=== PATIENT | female | born 2000 | race Caucasian/White ===

== ENCOUNTER 2024-06-17 00:17 | Observation (INO) | payer BC, SELFPAY ==
[2024-06-17] VITALS (7 sets, daily range): BP systolic 119–148; BP diastolic 75–107; PULSE 61–80; TEMP 36.6–37.3; O2SAT 95–100; BMI 26.6
--- NOTE | 2024-06-17 00:43 | ED_ITS ---
HPI - Abdominal Pain General Chief Complaint: Abdominal Pain Stated Complaint: ABDOMINAL PAIN, NAUSEA Time Seen by Provider: 06/17/24 00:40 Source: patient and other Source comment: Nurse from [facility] called report [employer] Mode of arrival: Wheelchair Limitations: no limitations History of Present Illness HPI narrative: opiate use disorder. Detoxed from Fentanyl and feeling better for a couple of days. Given suboxone yesterday and now presents with recurrent vomiting and abdominal pain. No diarrhea. no chest pain. Hydrated at detox facility and also given zofran and phenergan without improvement. States became ill several hours after taking suboxone. Patient denies use of marijuana MD elicited complaint: Reports abdominal pain Related Data Home Medications ?Medication ?Instructions ?Recorded ?Confirmed acetaminophen 500 mg tablet 500 mg PO TID PRN pain 06/17/24 06/17/24 buprenorphine 2 mg-naloxone 0.5 mg 1 film buccal DAILY 06/17/24 06/17/24 sublingual film (Suboxone) clonidine HCl 0.1 mg tablet 0.1 mg PO TID PRN hypertensive 06/17/24 06/17/24 emergency cyclobenzaprine 5 mg tablet 5 mg PO BID PRN muscle pain 06/17/24 06/17/24 dicyclomine 10 mg capsule 10 mg PO TID PRN abdominal pain 06/17/24 06/17/24 docusate sodium 100 mg capsule 100 mg PO BID PRN constipation 06/17/24 06/17/24 folic acid 1 mg tablet 1 mg PO .QD 06/17/24 06/17/24 hydroxyzine pamoate 25 mg capsule 25 mg PO Q6H PRN VALENTINA 06/17/24 06/17/24 ibuprofen 800 mg tablet (IBU) 800 mg PO TID PRN pain 06/17/24 06/17/24 levetiracetam 250 mg tablet 250 mg PO BID 06/17/24 06/17/24 (Keppra) melatonin 10 mg capsule 10 mg PO HS PRN sleep 06/17/24 06/17/24 omeprazole 20 mg capsule,delayed 20 mg PO DAILY 06/17/24 06/17/24 release ropinirole 1 mg tablet 1 mg PO TID 06/17/24 06/17/24 thiamine HCl (vitamin B1) 100 mg 100 mg PO .QD 06/17/24 06/17/24 tablet Previous Rx's ?Medication ?Instructions ?Recorded ondansetron 8 mg disintegrating 4 mg (1/2 x 8 mg) PO TID PRN 06/18/24 tablet nausea and vomiting #10 tabs Allergies Allergy/AdvReac Type Severity Reaction Status Date / Time No Known Drug Allergies Allergy Verified 06/17/24 00:25 Review of Systems ROS Status of ROS 10 or more systems reviewed and unremark able except as noted in history and below [facility] Medical History (Updated 06/17/24 @ 21:43 by Shaikh Jonathan MD) Seizure disorder ?G40.909 - Epilepsy, unspecified, not intractable, without status epilepticus (ICD-10) Opioid use disorder ?F11.90 - Opioid use, unspecified, uncomplicated (ICD-10) Social History (Updated 06/17/24 @ 06:34 by Amelie Rojas RN) Within the past year, how often did you have a drink containing alcohol: never Score interpretation: A score less than 3 is consistent with normal alcohol consumption. Smoking status: Never smoker Non-prescribed substance use details: Fentanyal Highest level of school completed/degree received: high school graduate Are you now , , , , never or living with a partner: never Little interest or pleasure in doing things: nearly every day Feeling down, depressed, or hopeless: nearly every day Feel stressed/tense/nervous/anxious/difficulty sleeping: rather much Gender Identity: female Exam Constitutional Vital Signs, click to edit/add: Last Vital Signs Temp 98.3 F 06/18/24 04:00 Pulse 66 06/18/24 04:00 Resp 16 06/18/24 04:00 BP 135/78 06/18/24 04:00 Pulse Ox 98 06/18/24 04:00 O2 Del Method Room Air 06/18/24 04:00 Common normals: no apparent distress, average body habitus, oriented x3, no limitations, healthy appearing, alert and well nourished [facility] Common normals: normocephalic and head/scalp atraumatic Respiratory Common normals: normal respiratory effort, no retractions, no use of accessory muscles and clear to auscultation bilaterally Cardio Common normals: regular rate, regular rhythm, S1 normal heart sound and S2 normal heart sound GI Common normals: Normal to inspection, nondistended, normoactive bowel sounds present and soft to palpation Other: generalized nonspecific tenderness Extremity Common normals: normal to inspection and full ROM Neuro Common normals: oriented x3, CN's II-XII intact bilaterally, moves all extremities and no focal motor deficits Psych Appearance: grossly normal Course Course Hospital Course: 23 y o female with hx of Opioid use disorder, was sent to the ED for intractable nausea and vomiting from opioid rehab facility where patient was being treated for Fentanyl use, and was undergoing detox from it. Patient reported that she was doing well until 2-3 days when she was started on Suboxone and since then she started to experience intractable nausea, vomiting and inability to tolerate PO diet. Patient reported similar reaction to Suboxone use in the past. Denies IV drug use. Patient was supposed to be discharged from Rehab facility and follow up as outpatient to continue her treatment for OUD. However, because of her symptoms, she was brought over to ED for further eval. Work up in ED was unremarkable with no evidence of sig metabolic/infectious etiology/derangement. Patient was admitted for IV hydration, supportive care for nausea/vomiting. Patient feels well today and denies any GI symptoms. She is medically stable for discharge. Follow-up with PCP in 1 to 2 weeks. She already has an appointment as an outpatient with opioid treatment center tomorrow. Vital Signs Vital signs: Vital Signs Temperature 98.8 F 06/17/24 00:21 Pulse Rate 61 06/17/24 00:21 Respiratory Rate 18 06/17/24 00:21 Blood Pressure 132/96 H 06/17/24 00:21 Pulse Oximetry 98 06/17/24 00:21 Oxygen Delivery Method Room Air 06/17/24 00:21 Temperature 98.3 F 06/18/24 04:00 Pulse Rate 66 06/18/24 04:00 Respiratory Rate 16 06/18/24 04:00 Blood Pressure 135/78 06/18/24 04:00 Pulse Oximetry 98 06/18/24 04:00 Oxygen Delivery Method Room Air 06/18/24 04:00 MDM - Abdominal Pain MDM Narrative Medical decision making narrative: substance abuse patient presents from detox center. States she had detoxed from Fentanyl and was feeling well for a couple of days. She was then started on suboxone yesterday. Several hours later she developed intractable nausea and vomiting. Treated at the center with hydration and antiemetics without response and presented to the ER. Exam unremarkable except for diffuse nonspecific abdominal tenderness without guarding. Hydrated and treated again with antiemetics. CT abdomen neg. Patient remains nausea and has again vomited despite treatment. Urine drug screen positive for suboxone. CBC, CMP WNL. UA with evidence of dehydration. Discussed with the hospitalist and patient accepted for intractable vomiting Lab Data Labs: Lab Results 06/17/24 06/17/24 06/17/24 Range/Units 00:37 01:11 01:57 WBC 7.1 (4.0-11.0) 10^3/uL RBC 4.52 (4.20-5.40) 10^6/uL Hgb 14.1 (12.0-16.0) g/dL Hct 40.1 (36.0-48.0) % MCV 88.7 (81.0-99.0) fL MCH 31.2 (26.7-34.0) pg MCHC 35.2 (29.9-35.2) g/dL RDW 11.6 (11.0-15.0) % Plt Count 358 (150-450) 10^3/uL MPV 9.1 L (9.5-13.5) fL Neut % (Auto) 85.0 H (43.0-75.0) % Lymph % (Auto) 11.5 L (20.5-60.0) % [place] % (Auto) 2.2 (1.7-12.0) % Eos % (Auto) 0.6 L (0.9-7.0) % Baso % (Auto) 0.4 (0.2-2.0) % Neut # (Auto) 6.1 (1.4-6.5) 10^3/uL Lymph # (Auto) 0.8 L (1.2-3.8) 10^3/uL [place] # (Auto) 0.2 L (0.3-0.8) 10^3/uL Eos # (Auto) 0.0 (0.0-0.7) 10^3/uL Baso # (Auto) 0.0 (0.0-0.1) 10^3/uL Abs Immat Gran (auto) 0.02 (0.00-0.03) 10^3/uL Imm/Tot Granulo (auto) 0.3 (0.0-0.5) % Sodium 141 (136-145) mmol/L Potassium 4.5 (3.5-5.1) mmol/L Chloride 106 (98-107) mmol/L Carbon Dioxide 23.4 (21.0-32.0) mmol/L Anion Gap 16.1 BUN 15.0 (7.0-18.0) mg/dL Creatinine 0.68 (0.55-1.02) mg/dL Est GFR ( Amer) >60 (>=60 mL/min/1.73m^2) Est GFR (Non-Af Amer) >60 (>=60 mL/min/1.73m^2) BUN/Creatinine Ratio 22.1 Glucose 114 H (74-106) mg/dL Lactate 1.3 (0.4-2.0) mmol/L Calcium 9.3 (8.5-10.1) mg/dL Total Bilirubin 1.1 H (0.2-1.0) mg/dL AST 31 (15-37) U/L ALT 18 (14-59) U/L Alkaline Phosphatase 165 H (46-116) U/L Total Protein 7.8 (6.4-8.2) g/dL Albumin 3.9 (3.4-5.0) g/dL Globulin 3.9 g/dL Albumin/Globulin Ratio 1.0 Lipase 43.0 (16.0-77.0) U/L Urine Color Yellow (YELLOW) Urine Clarity Sl cloudy (CLEAR) Urine pH 6.0 (5.0-9.0) Ur Specific [place] >=1.030 A (1.005-1.025) Urine Protein Trace (NEG/TRACE) mg/dL Urine Glucose (UA) Negative (NEGATIVE) mg/dL Urine Ketones 40 A (NEGATIVE) mg/dL Urine Occult Blood Moderate A (NEGATIVE) Urine Nitrite Negative (NEGATIVE) Urine Bilirubin Small A (NEGATIVE) Urine Urobilinogen 0.2 (0.2-1.0) EU/dL Ur Leukocyte Esterase Negative (NEGATIVE) Urine RBC 0-2 (0-2) #/HPF Urine WBC 2-5 A (NONE SEEN) #/HPF Ur Squamous Epith Cells Many A (NONE/RARE) #/LPF Urine Crystals None seen (None Seen) #/HPF Urine Bacteria Trace A (NONE SEEN) #/HPF Urine Casts None seen (NONE SEEN) #/LPF Urine Mucus Large A (NONE SEEN) Ur Culture Indicated? No Urine HCG, Qual Negative (NEGATIVE) Urine Opiates Screen Negative (NEGATIVE) Ur Buprenorphine Scrn Positive A (NEGATIVE) Ur Oxycodone Screen Negative (NEGATIVE) Urine Methadone Screen Negative (NEGATIVE) Ur Barbiturates Screen Negative (NEGATIVE) U Tricyclic Antidepress Positive A (NEGATIVE) Ur Phencyclidine Scrn Negative (NEGATIVE) Ur Amphetamines Screen Negative (NEGATIVE) U Methamphetamines Scrn Negative (NEGATIVE) U Benzodiazepines Scrn Negative (NEGATIVE) Urine Cocaine Screen Negative (NEGATIVE) U Cannabinoids Screen Negative (NEGATIVE) Discharge Plan Discharge Chief Complaint: Abdominal Pain Clinical Impression: Intractable vomiting Patient Disposition: Admitted as Observation Condition: Good Discharge Date/Time: 06/17/24 05:50
[2024-06-17 00:58] LABS: Basophils Percent Auto 0.4 % (0.2-2.0); Eosinophils Percent Auto 0.6 % (0.9-7.0); Hematocrit 40.1 % (36.0-48.0); Hemoglobin 14.1 g/dL (12.0-16.0); Immature Granulocytes Abs Auto 0.02 10^3/uL (0.00-0.03); Immature Granulocytes Pct Auto 0.3 % (0.0-0.5); Lymphocytes Absolute Auto 0.8 10^3/uL (1.2-3.8); Lymphocytes Percent Auto 11.5 % (20.5-60.0); Mean Corpuscular HGB Conc 35.2 g/dL (29.9-35.2); Mean Corpuscular Hemoglobin 31.2 pg (26.7-34.0); Mean Corpuscular Volume 88.7 fL (81.0-99.0); Mean Platelet Volume 9.1 fL (9.5-13.5); Monocytes Absolute Auto 0.2 10^3/uL (0.3-0.8); Monocytes Percent Auto 2.2 % (1.7-12.0); Neutrophils Absolute Auto 6.1 10^3/uL (1.4-6.5); Platelet Count 358 10^3/uL (150-450); Red Blood Count 4.52 10^6/uL (4.20-5.40); Red Cell Distribution Width 11.6 % (11.0-15.0); White Blood Count 7.1 10^3/uL (4.0-11.0)
[2024-06-17 01:15] LABS: Alanine Aminotransferase 18 U/L (14-59); Albumin Level 3.9 g/dL (3.4-5.0); Alkaline Phosphatase 165 U/L (46-116); Anion Gap 16.1; Aspartate Amino Transferase 31 U/L (15-37); BUN Creatinine Ratio 22.1; Bilirubin Total 1.1 mg/dL (0.2-1.0); Calcium 9.3 mg/dL (8.5-10.1); Carbon Dioxide 23.4 mmol/L (21.0-32.0); Chloride 106 mmol/L (98-107); Estimated GFR (African America >60 (>=60 mL/min/1.73m^2); Estimated GFR (Non-African Ame >60 (>=60 mL/min/1.73m^2); Globulin 3.9 g/dL; Glucose 114 mg/dL (74-106); Potassium 4.5 mmol/L (3.5-5.1); Sodium 141 mmol/L (136-145); Total Protein 7.8 g/dL (6.4-8.2)
[2024-06-17 01:41] LABS: Lactate/Lactic Acid 1.3 mmol/L (0.4-2.0)
[2024-06-17] MEDS: 0.9 % SODIUM CHLORIDE 1,000 ML 999 ML IV (01:41)
[2024-06-17] MEDS: METOCLOPRAMIDE HCL 10 MG/2 ML VIAL IVP ×2 (01:41→05:33)
[2024-06-17] MEDS: DIPHENHYDRAMINE HCL 50 MG/ML VIAL IVP (01:41)
[2024-06-17 02:06] LABS: Bilirubin Urine SMALL (NEGATIVE); Blood Urine MODERATE (NEGATIVE); Clarity Urine SL CLOUDY (CLEAR); Color Urine YELLOW (YELLOW); Glucose Urine UA NEGATIVE (NEGATIVE); Ketones Urine 40 mg/dL (NEGATIVE); Leukocyte Esterase Urine NEGATIVE (NEGATIVE); Nitrite Urine NEGATIVE (NEGATIVE); Protein Urine TRACE mg/dL (NEG/TRACE); Specific Gravity Urine >=1.030 (1.005-1.025); Urobilinogen Urine 0.2 EU/dL (0.2-1.0)
[2024-06-17 02:08] LABS: HCG Qualitative Urine* NEGATIVE (NEGATIVE); Internal Control Within Normal Limits
[2024-06-17 02:23] LABS: Bacteria Urine TRACE #/HPF (NONE SEEN); Mucus Urine LARGE (NONE SEEN); RBC Urine 0-2 #/HPF (0-2); Squamous Epithelial Cell Urine MANY #/LPF (NONE/RARE)
[2024-06-17 02:24] LABS: Cast Seen? NONE SEEN #/LPF (NONE SEEN); Crystals Seen? None Seen #/HPF (None Seen); Urine Culture Indicated NO
[2024-06-17] MEDS: ONDANSETRON PF 4 MG/2 ML VIAL IV ×2 (03:04→09:09)
[2024-06-17] MEDS: 0.9 % SODIUM CHLORIDE 1,000 ML 200 ML IV (03:57)
[2024-06-17 04:02] LABS: Amphetamine Screen Urine NEGATIVE (NEGATIVE); Barbiturates Screen Urine NEGATIVE (NEGATIVE); Benzodiazepines Screen Urine NEGATIVE (NEGATIVE); Buprenorphine Screen Urine POSITIVE (NEGATIVE); Cannabinoid Screen Urine NEGATIVE (NEGATIVE); Cocaine Screen Urine NEGATIVE (NEGATIVE); Methadone Screen Urine NEGATIVE (NEGATIVE); Methamphetamines Screen Urine NEGATIVE (NEGATIVE); Opiate Screen Urine NEGATIVE (NEGATIVE); Oxycodone Screen Urine NEGATIVE (NEGATIVE); Phencyclidine Screen Urine NEGATIVE (NEGATIVE); Tricyclic Antidepressant Urine POSITIVE (NEGATIVE)
[2024-06-17] MEDS: PANTOPRAZOLE SODIUM 40 MG TABLET.DR PO (08:10)
[2024-06-17] MEDS: 0.9 % SODIUM CHLORIDE 1,000 ML 150 ML IV (09:09)
[2024-06-17] MEDS: HALOPERIDOL LACTATE 5 MG/ML VIAL IV (11:18)
[2024-06-17] MEDS: METOCLOPRAMIDE HCL 10 MG/2 ML VIAL 5 MG IVP ×2 (13:29→22:04)
[2024-06-17] MEDS: 0.9 % SODIUM CHLORIDE 1,000 ML 100 ML IV (17:06)
--- NOTE | 2024-06-17 18:35 | P.HP_ITS ---
HPI H&P: HPI History of Present Illness Chief complaint: INTRACTABLE VOMITING Narrative: 23 y o female with hx of Opioid use disorder, was sent to the ED for intractable nausea and vomiting from Acute rehab where patient was being treated for Fentanyl use, and was undergoing detox from it. She reports her last use was about 7-8 days ago. Patient reports that she was doing well until 2-3 days when she was started on Suboxone and since then she started to experience intractable nausea, vomiting and inability to tolerate PO diet. She denies diarrhea. Reports generalized abdominal discomfort. Reports similar reaction to Suboxone use in the past. Denies IV drug use. Patient was supposed to be discharged from Rehab facility and follow up as outpatient to continue her treatment for OUD. However, because of her symptoms, she was brought over to ED for further eval. Work up in ED was unremarkable with no evidence of sig metabolic/infectious etiology/derangement. Patient was admitted overnight for IV hydration, supportive care for nausea/vomiting. In the morning, when I evaluated her, she was still nauseous and was unable to tolerate PO diet.Zofran was not quite helping her. Patient denies hx of Cannabis hyperemesis syndrome, cyclic vomiting syndrome. Opioid HPI Opioid Management Most Recent Pain and Opioid Data: Last Pain Assessment 06/17/24 20:08 Last ORT Total Score 5 06/17/24 06:28 06/17/24 Last ORT Risk Category Moderate Risk 06/17/24 06:28 06/17/24 Ur Phencyclidine Scrn Negative (NEGATIVE) 06/17/24 01:57 05/30 Review of Systems ROS Status of ROS 10 or more systems reviewed and unremark able except as noted in history and below [facility] Medical History (Updated 06/17/24 @ 21:43 by Shaikh Jonathan MD) Seizure disorder ?G40.909 - Epilepsy, unspecified, not intractable, without status epilepticus (ICD-10) Opioid use disorder ?F11.90 - Opioid use, unspecified, uncomplicated (ICD-10) Social History (Updated 06/17/24 @ 06:34 by Amelie Rojas RN) Within the past year, how often did you have a drink containing alcohol: never Score interpretation: A score less than 3 is consistent with normal alcohol consumption. Smoking status: Never smoker Non-prescribed substance use details: Fentanyal Highest level of school completed/degree received: high school graduate Are you now , , , , never or living with a partner: never Little interest or pleasure in doing things: nearly every day Feeling down, depressed, or hopeless: nearly every day Feel stressed/tense/nervous/anxious/difficulty sleeping: rather much Gender Identity: female Meds Home Medications and Allergies Home Medications ?Medication ?Instructions ?Recorded ?Confirmed ?Type acetaminophen 500 mg tablet 500 mg PO TID PRN pain 06/17/24 06/17/24 History buprenorphine 2 mg-naloxone 0.5 mg 1 film buccal DAILY 06/17/24 06/17/24 History sublingual film (Suboxone) clonidine HCl 0.1 mg tablet 0.1 mg PO TID PRN hypertensive 06/17/24 06/17/24 History emergency cyclobenzaprine 5 mg tablet 5 mg PO BID PRN muscle pain 06/17/24 06/17/24 History dicyclomine 10 mg capsule 10 mg PO TID PRN abdominal pain 06/17/24 06/17/24 History docusate sodium 100 mg capsule 100 mg PO BID PRN constipation 06/17/24 06/17/24 History folic acid 1 mg tablet 1 mg PO .QD 06/17/24 06/17/24 History hydroxyzine pamoate 25 mg capsule 25 mg PO Q6H PRN VALENITNA 06/17/24 06/17/24 History ibuprofen 800 mg tablet (IBU) 800 mg PO TID PRN pain 06/17/24 06/17/24 History levetiracetam 250 mg tablet 250 mg PO BID 06/17/24 06/17/24 History (Keppra) melatonin 10 mg capsule 10 mg PO HS PRN sleep 06/17/24 06/17/24 History omeprazole 20 mg capsule,delayed 20 mg PO DAILY 06/17/24 06/17/24 History release ondansetron 8 mg disintegrating 8 mg PO TID PRN nausea and vomiting 06/17/24 06/17/24 History tablet ropinirole 1 mg tablet 1 mg PO TID 06/17/24 06/17/24 History thiamine HCl (vitamin B1) 100 mg 100 mg PO .QD 06/17/24 06/17/24 History tablet Allergies Allergy/AdvReac Type Severity Reaction Status Date / Time No Known Drug Allergies Allergy Verified 06/17/24 00:25 Exam Constitutional Vital Signs, click to edit/add: Last Vital Signs Temp 98.2 F 06/17/24 16:00 Pulse 75 06/17/24 16:00 Resp 18 06/17/24 16:00 BP 119/75 06/17/24 16:00 Pulse Ox 95 06/17/24 16:00 O2 Del Method Room Air 06/17/24 16:00 Documenting provider has reviewed patient's vital signs: yes Common normals: no apparent distress and oriented x3 General appearance: cooperative Respiratory Common normals: normal respiratory effort and clear to auscultation bilaterally Effort & inspection: able to speak in complete sentences Auscultation: clear to auscultation bilaterally Cardio Common normals: regular rate, S1 normal heart sound and S2 normal heart sound Rate: regular rate Heart sounds: S1 normal and S2 normal GI Common normals: Normal to inspection, nondistended, normoactive bowel sounds present, soft to palpation, non-tender and no hepatosplenomegaly Palpation: soft and no hepatosplenomegaly Extremity Common normals: no clubbing, cyanosis or edema Neuro Common normals: oriented x3, moves all extremities and no focal motor deficits Psych Common normals: mental status grossly normal, denies hallucinations, denies homicidal ideation and denies suicidal ideation Results Labs Labs: Short CBC 06/17/24 Range/Units 00:37 WBC 7.1 (4.0-11.0) 10^3/uL Hgb 14.1 (12.0-16.0) g/dL Hct 40.1 (36.0-48.0) % Plt Count 358 (150-450) 10^3/uL BMP 06/17/24 00:37 Sodium 141 Potassium 4.5 Chloride 106 Carbon Dioxide 23.4 BUN 15.0 Creatinine 0.68 Glucose 114 H Calcium 9.3 Liver Function 06/17/24 Range/Units 00:37 Total Bilirubin 1.1 H (0.2-1.0) mg/dL AST 31 (15-37) U/L ALT 18 (14-59) U/L Alkaline Phosphatase 165 H (46-116) U/L Albumin 3.9 (3.4-5.0) g/dL Urine 06/17/24 Range/Units 01:57 Urine Color Yellow (YELLOW) Urine Clarity Sl cloudy (CLEAR) Urine pH 6.0 (5.0-9.0) Ur Specific [place] >=1.030 A (1.005-1.025) Urine Protein Trace (NEG/TRACE) mg/dL Urine Glucose (UA) Negative (NEGATIVE) mg/dL Assessment and Plan Assessment and Plan (1) Intractable vomiting: (2) Opioid use disorder: (3) Seizure disorder: Plan Intractable nausea, vomiting likely due to combination of opioid withdrawal, adverse reaction to Suboxone. cw IV hydration, zofran as needed. Will order one time dose of Halidol to see if if helps as I suspect possibility of cyclic vomiting syndrome. She was also started on IV reglan TID with meals. No need for abdominal imaging as abd soft, non tender. C/w supportive care. Advance diet as tolerated. Monitor clinically, needs continued monitoring and treatment as patient unable to tolerate PO diet.
[2024-06-18] MEDS: HYDROXYZINE PAMOATE 25 MG CAPSULE PO (00:40)
[2024-06-18] MEDS: 0.9 % SODIUM CHLORIDE 1,000 ML 100 ML IV (03:31)
[2024-06-18 04:00] VITALS: BP 135/78; PULSE 66; TEMP 36.8; O2SAT 98
[2024-06-18] MEDS: METOCLOPRAMIDE HCL 10 MG/2 ML VIAL 5 MG IVP (05:06)
--- NOTE | 2024-06-18 09:43 | SWNOTE1 ---
HUGH received a message from case management and pt will be discharged back to [facility] today and need to call [facility] for transport. HUGH called [facility] and they will have a nurse call HUGH back.
--- NOTE | 2024-06-18 09:58 | SWNOTE1 ---
HUGH received a call from nurse Cuadra at [facility]. He stated he will need nurse to nurse report and need updates faxed over to [facility] and then they will coordinate time to pick her up. HUGH let nurse know.
--- NOTE | 2024-06-18 10:01 | P.DS_ITS ---
DS: Providers Provider Date of admission: 06/17/24 05:50 Primary care physician: Non-Staff PhysicianMD Admitting clinician: Shaikh Jonathan Attending physician on admission: Shaikh Jonathan Attending physician on discharge: Shaikh Jonathan Discharging clinician: Shaikh Jonathan Anticipated date of discharge: 06/18/24 DS: Diagnosis Discharge Diagnosis (1) Intractable vomiting: (2) Opioid use disorder: (3) Seizure disorder: DS: Summary Hospital Course Hospital Course: 23 y o female with hx of Opioid use disorder, was sent to the ED for intractable nausea and vomiting from opioid rehab facility where patient was being treated for Fentanyl use, and was undergoing detox from it. Patient reported that she was doing well until 2-3 days when she was started on Suboxone and since then she started to experience intractable nausea, vomiting and inability to tolerate PO diet. Patient reported similar reaction to Suboxone use in the past. Denies IV drug use. Patient was supposed to be discharged from Rehab facility and follow up as outpatient to continue her treatment for OUD. However, because of her symptoms, she was brought over to ED for further eval. Work up in ED was unremarkable with no evidence of sig metabolic/infectious etiology/derangement. Patient was admitted for IV hydration, supportive care for nausea/vomiting. Patient feels well today and denies any GI symptoms. She is medically stable for discharge. Follow-up with PCP in 1 to 2 weeks. She already has an appointment as an outpatient with opioid treatment center tomorrow. Status at Discharge Functional status at discharge: independent ambulation Overall status at discharge: patient is back to baseline Time Spent with Patient Time attestation: Total time spent providing and/or coordinating discharge services: Time spent: greater than 30 minutes Exam Constitutional Vital Signs, click to edit/add: Last Vital Signs Temp 98.3 F 06/18/24 04:00 Pulse 66 06/18/24 04:00 Resp 16 06/18/24 04:00 BP 135/78 06/18/24 04:00 Pulse Ox 98 06/18/24 04:00 O2 Del Method Room Air 06/18/24 04:00 Documenting provider has reviewed patient's vital signs: yes Common normals: no apparent distress and oriented x3 General appearance: cooperative Respiratory Common normals: normal respiratory effort and clear to auscultation bilaterally Effort & inspection: able to speak in complete sentences Auscultation: clear to auscultation bilaterally Cardio Common normals: regular rate, S1 normal heart sound and S2 normal heart sound Rate: regular rate Heart sounds: S1 normal and S2 normal GI Common normals: Normal to inspection, nondistended, normoactive bowel sounds present, soft to palpation, non-tender and no hepatosplenomegaly Palpation: soft and no hepatosplenomegaly Extremity Common normals: no clubbing, cyanosis or edema Neuro Common normals: oriented x3, moves all extremities and no focal motor deficits Psych Common normals: mental status grossly normal, denies hallucinations, denies homicidal ideation and denies suicidal ideation Discharge Plan Discharge Disposition: Home, Self-Care Condition: Good Discharge Medications: Continued clonidine HCl 0.1 mg tablet 0.1 mg PO TID PRN (Reason: hypertensive emergency) Rx Instructions: anxiety cyclobenzaprine 5 mg tablet 5 mg PO BID PRN (Reason: muscle pain) dicyclomine 10 mg capsule 10 mg PO TID PRN (Reason: abdominal pain) hydroxyzine pamoate 25 mg capsule 25 mg PO Q6H PRN (Reason: VALENTINA) melatonin 10 mg capsule 10 mg PO HS PRN (Reason: sleep) ropinirole 1 mg tablet 1 mg PO TID ibuprofen [IBU] 800 mg tablet 800 mg PO TID PRN (Reason: pain) docusate sodium 100 mg capsule 100 mg PO BID PRN (Reason: constipation) levetiracetam [Keppra] 250 mg tablet 250 mg PO BID omeprazole 20 mg capsule,delayed release(DR/EC) 20 mg PO DAILY buprenorphine-naloxone [Suboxone] 2-0.5 mg film 1 film buccal DAILY Rx Instructions: place 1 strip/tab under (each) side of tongue acetaminophen 500 mg tablet 500 mg PO TID PRN (Reason: pain) Rx Instructions: 1-2 TABLETS folic acid 1 mg tablet 1 mg PO .QD thiamine HCl (vitamin B1) 100 mg tablet 100 mg PO .QD Changed ondansetron 8 mg tablet,disintegrating 4 mg PO TID PRN (Reason: nausea and vomiting) Qty: 10 0RF Activity: increase activity as tolerated Diet: advance to your usual diet Print Language: Swedish Forms: Portal Instructions Follow Up Appointments: Keep scheduled appt with PCP for 06/19 -
--- NOTE | 2024-06-18 10:06 | CM.NOTE ---
Rounds made with Dr. Castillo, pt will discharge to [facility] today. Pt has f/u with outpatient counseling tomorrow [facility] closer to her home. Pt is planning on discharging today from [facility].
--- NOTE | 2024-06-18 10:55 | SWNOTE1 ---
SW faxed face sheet, ED note, H&P, labs, and dc med rec to [facility].
--- NOTE | 2024-06-19 14:29 | CM.DCFOLLOWU ---
Pt discharged to [facility] facility, no call back.
== END 2024-06-18 10:45 | disposition home or self-care (01) ==
LOC: ER 04:45 → MS 05:55
PROVIDERS: Admitting Provider Internal Medicine; Emergency Provider Internal Medicine; Visit Provider Internal Medicine
DX: R11.2 Nausea with vomiting, unspecified (principal); F11.988 Opioid use, unspecified with other opioid-induced disorder; G40.909 Epilepsy, unspecified, not intractable, without status epilepticus; R10.9 Unspecified abdominal pain; Q51.3 Bicornate uterus; N83.02 Follicular cyst of left ovary; N83.01 Follicular cyst of right ovary
CPT/HCPCS: 36415; 74177; 80053; 80307; 81001; 83605; 83690; 84703; 85025; 96361; 96374; 96375; 96376; 99285; G0378; J1200; J1630; J2405; J2765; Q0177; Q9967